=== PATIENT | male | born 1945 | race Caucasian/White ===

== ENCOUNTER → 2024-05-10 07:07 | Outpatient (REF) | payer OTHER, SELFPAY | LOC: PAVMRI 07:07 | PROVIDERS: ATTENDING PHYSICIAN Physician Assistant; FAMILY PHYSICIAN Internal Medicine | DX: M54.16 Radiculopathy, lumbar region (principal) | CPT/HCPCS: 72148 ==

== ENCOUNTER → 2024-05-22 06:23 | Outpatient (REF) | payer OTHER, SELFPAY | LOC: RCS 06:23 | PROVIDERS: ATTENDING PHYSICIAN Physical Medicine & Rehabilitation; FAMILY PHYSICIAN Internal Medicine | DX: Z01.818 Encounter for other preprocedural examination (principal) | CPT/HCPCS: 93005 ==

== ENCOUNTER 2024-11-30 09:36 | Emergency (ER) | payer OTHER, SELFPAY ==
[2024-11-30 09:56] VITALS: BP 107/64
[2024-11-30 10:35] LABS: % Basophils 0.6 % (0-2); % Immature Granulocytes 0.3 % (0-0.5); % Lymphocytes 24.9 % (20.5-51.1); % Monocytes 9.5 % (1.7-9.3); % Neutrophils 61.7 % (42.2-75.2); Absolute Eosinophils 0.2 10^3/uL (0-0.7); Absolute Lymphocytes 1.8 10^3/uL (1.2-3.4); Absolute Monocytes 0.7 10^3/uL (0.1-0.6); Absolute Neutrophils 4.4 10^3/uL (1.4-6.5); Hematocrit 45.7 % (39.0-52.0); Mean Corpuscular Hgb 32.2 pg (27.0-31.0); Mean Platelet Volume 9.5 fL (7.4-10.4); Nucleated Red Blood Cells % 0 % (-); Platelet Count 182 10^3/uL (130-400); Red Blood Cell Count 4.97 10^6/uL (4.70-6.10); Red Cell Dist. Width 12.9 % (11.5-14.5); White Blood Cell Count 7.1 10^3/uL (4.8-10.8)
[2024-11-30 10:53] LABS: ALT (SGPT) 34 U/L (0-50); AST (SGOT) 31 U/L (17-59); Albumin 4.2 g/dl (3.5-5.0); Alkaline Phosphatase 85 U/L (38-126); Blood Urea Nitrogen 19 mg/dl (9-20); Calcium 8.9 mg/dl (8.4-10.2); Carbon Dioxide 24 mmol/L (22-30); Chloride 102 mmol/L (98-107); Glucose 109 mg/dl (70-99); Potassium 4.1 mmol/L (3.5-5.1); Sodium 137 mmol/L (135-145); Total Protein 6.9 g/dl (6.3-8.2); eGFR > 60.00
[2024-11-30 12:46] VITALS: BP 135/77
--- NOTE | 2024-11-30 13:24 | ED.GENMED ---
History of Present Illness
General
Chief Complaint: Heart Rate Problem
Source: patient
Exam Limitations: none
Time Seen by Provider: 11/30/24 13:04
Nursing documentation reviewed up to this point in time: agreed with
History of Present Illness
History of Present Illness:
pt is a 79 y/o M with h/o HLD
very active
found to be in rate controled a fib this morning at a GI lab in [place]
he did the colonoscopy prep yesterday
felt a little 'jittery' this morning on the away there 645 am but it resolved
when he got there they did EKG and saw him afib, sent him with the EKG
bp was a little soft 90/50 but pt was asymptomatic
no cp, sob, abdominal pain
he has continued to remain asymptomatic
he had 1 episode liquid stool here but otherwise is not having sigifnicant diarrhea
no h/o GI BLEED, ULCERS
he did have hemoptysis in 2021 related to a lung infection but that resolved
never been on AC
never seen cards
Past History
Past History
ED Past Medical History: Hypercholesterolemia and Other (diverticulosis)
ED Past Surgical History: Orthopedic
Social History
Tobacco: Former smoker
Alcohol: None
Drug: None
Review of Systems
Review of Systems
Allergies reviewed?: Yes
All Other Systems: Not applicable
Phy Exam
Physical Exam
Physical Exam:
GENERAL: Alert , in no apparent distress
ENT: o/p clr, mmm.
CARDIAC: irregularly irregular rate controlled, no murmur, no edema
LUNGS: Clear breath sounds bilaterally, no acute respiratory distress, no wheezes/rales/rhonchi
ABDOMEN: Soft, without focal tenderness, no r/g, no cvat, normal bowel sounds
NEUROLOGICAL: Alert and oriented, no focal neuro deficits
SKIN: Warm and dry, skin intact.
MUSCULOSKELETAL: No edema, well perfused. neg josh's sign
PSYCH: Normal and appropriate interaction.
Course
Orders/Labs/Results
Orders:
Orders
11/30/24 10:00
Electrocardiogram (*1) Urgent
Reason for Study: Abdominal Pain
EKG- Treatment ONCE
11/30/24 10:19
Complete Blood Count/With Diff Urgent
Comprehensive Metabolic Panel Urgent
Magnesium Urgent
Comment: TSH REFLEX & MAG ADDED ON BY FLOOR 1:30PM 11-30-24
TSH Reflex To Free T4 Urgent
11/30/24 13:30
Electrocardiogram (*1) Urgent
Reason for Study: Atrial Fibrillation
EKG- Treatment ONCE
11/30/24 13:35
Add On- LAB Urgent
Tests Added?: tsh reflex t4, magnesium
11/30/24 13:36
Case Management Consult ONCE
Case Management Consult: Other
Comment: eliquis vs xarelto
11/30/24 14:08
Apixaban [Eliquis] 5 mg PO NOW STA
11/30/24 14:09
Metoprolol Xl [Toprol Xl] 12.5 mg PO NOW STA
Abnormal Lab Results
11/30/24
10:19
MCH 32.2 H pg
(27.0-31.0)
Absolute Monos (auto) 0.7 H 10^3/uL
(0.1-0.6)
Monocytes % 9.5 H %
(1.7-9.3)
Glucose 109 H mg/dl
(70-99)
11/30/24 10:19
11/30/24 10:19
Vital Signs
Initial and Last Documented VS:
Initial Vital Signs
Temp Pulse Resp BP Pulse Ox
36.6 C 69 20 107/64 97
11/30/24 09:56 11/30/24 09:56 11/30/24 09:56 11/30/24 09:56 11/30/24 09:56
Last Documented Vital Signs
Temp Pulse Resp BP Pulse Ox
36.3 C 61 22 110/66 95
11/30/24 13:49 11/30/24 13:49 11/30/24 13:49 11/30/24 14:38 11/30/24 13:49
MDM/Problems Addressed
Differential Diagnosis Includes:
new onset aib, dehydration, electrolyte disturbance, hypothyroid
MDM/Problems Addressed:
79 y/o M
hld, very active, healthy
did a colonoscopy prep yesterday;
this am [address] he felt little 'jittery' or 'not himself' but then that resolved
he was found to be in rate controlled afib
bp was a little low for them at the GI suite 90/50 but he has not had low bp here
no sob, chest pain; sounds like he has had occasional lightheadedness when he bends over sometimes but never saw cards for it
he is very active, plays pickle ball 4 days a week and cycles
hr here is normal; no ischemic ekg changes, looks like flutter
cbc, cmp normal (no mag or tsh sent but i can send those)
[id number] is 2 just for his age;
he had repeat EKG at 1345 showing he is in sinus rhythm with sinus arrhythmia
wih rate 60s
bp 110/60
d/w dr. kee intiially before the repeat ekg and we had a plan for eliquis and toprol 25 mg xl but after the repeat ekg showin sinus rhythm, he recommended continuing the eliqquis because o PAF and [id number] score of 2 but also lower the toprol
xl to 12.5 mg
d/w ed attending who agreed;
*Critical Care Note
Total Time (30-74mins, 75-104mins- exclusive of procedures): Not Applicable
ED Attending Note
-
Portions of this chart may have been created with voice recognition software.� Occasional wrong word or��sound alike� substitutions may have occurred due to the inherent limitations of voice recognition software.
Discharge Plan
Departure
Patient Disposition: Home (Routine Discharge)
Date of Disposition: 11/30/24
Time of Disposition: 14:08
Patient with high blood pressure during this ER visit?: No
Condition: Fair
Covid-19: Not Applicable
Discharge Problem:
Paroxysmal A-fib
Instructions: Atrial Fibrillation (DC)
Prescriptions:
New
metoprolol succinate [Toprol XL] 25 mg tablet extended release 24 hr
12.5 mg PO DAILY Qty: 30 0RF
Eliquis 5 mg tablet
5 mg PO BID Qty: 60 0RF
No Action
rosuvastatin 10 MG tablet
10 mg PO QPM
prednisone 10 MG tablet
10 mg PO DAILY Qty: 18 0RF
Rx Instructions:
3 tablets daily x3 days, then 2 tablets daily x3 days, then 1 tablet daily x3 days
tamsulosin 0.4 MG capsule
0.4 mg PO DAILY
vitamins A,C,[id number] [PreserVision AREDS] 1 CAP capsule
1 cap PO DAILY
Azithromycin 250 MG Tablet
250 mg PO DAILY Qty: 4 0RF
Referrals:
Joseph Fuchs MD [Family Provider] -
Activity Restrictions/Additional Instructions:
YOU WERE FOUND TO BE IN ATRIAL FIBRILLATION
YOU ACTUALLY MAY BE GOING IN AND OUT OF IT
IT COULD HAVE BEEN TRIGGERED BY THE COLONOSCOPY PREP
EAT WELL/STAY HYDRATED
TAKE TOPROL XL 12.5 MG DAILY - THIS WILL HELP WITH THE IRREGULAR HEART RATE
AND TAKE YOUR BLOOD THINNER PRESCRIBED
IF YOU FALL AND HIT YOUR HEAD OR HAVE ANY SIGNIFICANT TRAUMA OR BLEEDING, RETURN IMMEDIATELY
RETURN ALSO FOR: CHEST PAIN, SHORTNESS OF BREATH, PASSING OUT, ETC
OTHERWISE EJ THE [facility] AND TELL THEM YOU WERE IN OUR EMERGENCY DEPARTMENT WITH AFIB AND I SPOKE WITH DR. KEE FROM CARDIOLOGY AND HE WANTED YOU TO GET AN APPOINTMENT.
Interventions
Interventions:
*Risk Screen - Suicide Last Done: 11/30/24 09:56
*General Assessment Last Done: 11/30/24 09:56
*Neglect/Abuse Screening Last Done: 11/30/24 09:56
*Nursing Disposition Last Done: 11/30/24 14:44
ED- Cardiac Assessment Last Done: 11/30/24 13:50
ED- Pulmonary Assessment Last Done: 11/30/24 13:50
Discharge Date and Time
Discharge Date/Time: 11/30/24 14:44
Print Language: ROMANIAN
[2024-11-30 13:49] VITALS: BP 110/66
--- NOTE | 2024-11-30 14:09 | CM ---
CM confirmed that patient's ELiquis 5mg BID is $47. Patient given coupon. ED PA updated. Bedside RN updated.
[2024-11-30 14:32] LABS: Magnesium 1.9 mg/dl (1.6-2.3)
[2024-11-30] MEDS: ELIQUIS 5 MG PO (14:37)
[2024-11-30] MEDS: TOPROL XL 12.5 MG PO (14:38)
[2024-11-30 18:02] LABS: TSH Reflex To Free T4 3.69 uIU/ml (0.47-4.68)
== END 2024-11-30 14:44 | disposition home or self-care (01) ==
LOC: EMR 09:36
PROVIDERS: Emergency Medicine; EMERGENCY PHYSICIAN Emergency Medicine; FAMILY PHYSICIAN Internal Medicine
DX: I48.0 Paroxysmal atrial fibrillation (principal); E78.00 Pure hypercholesterolemia, unspecified; Z87.891 Personal history of nicotine dependence
CPT/HCPCS: 99284; 80053; 83735; 84443; 85025; 93005

== ENCOUNTER → 2024-12-27 06:29 | Outpatient (REF) | payer OTHER, SELFPAY ==
[2024-12-27 08:34] LABS: TSH Reflex To Free T4 3.74 uIU/ml (0.47-4.68)
== END ==
LOC: REG 06:29
PROVIDERS: ATTENDING PHYSICIAN Internal Medicine Cardiovascular Disease; FAMILY PHYSICIAN Internal Medicine
DX: I48.0 Paroxysmal atrial fibrillation (principal)
CPT/HCPCS: 36415; 84443

== ENCOUNTER → 2024-12-31 06:27 | Outpatient (REF) | payer OTHER, SELFPAY ==
[2024-12-31 07:35] LABS: HDL Cholesterol 40 mg/dl; LDL Cholesterol, Calculated 72 mg/dl; Total Cholesterol 131 mg/dl (50-199); Triglyceride 97 mg/dl (10-149); Very Low Density Lipoprotein 19 mg/dl (0-30)
[2024-12-31 08:15] LABS: PSA, Total - Screen 0.87 ng/ml (0.0-4.0)
== END ==
LOC: REG 06:27
PROVIDERS: ATTENDING PHYSICIAN Internal Medicine
DX: Z00.00 Encounter for general adult medical examination without abnormal findings (principal); E78.00 Pure hypercholesterolemia, unspecified; N40.0 Benign prostatic hyperplasia without lower urinary tract symptoms; I48.0 Paroxysmal atrial fibrillation; Z12.5 Encounter for screening for malignant neoplasm of prostate
CPT/HCPCS: 36415; 80061; G0103

== ENCOUNTER → 2025-01-07 08:09 | Outpatient (REF) | payer OTHER, SELFPAY | LOC: HWRCS 08:09 | PROVIDERS: ATTENDING PHYSICIAN Internal Medicine Cardiovascular Disease; FAMILY PHYSICIAN Internal Medicine | DX: I48.0 Paroxysmal atrial fibrillation (principal) | CPT/HCPCS: 93306 ==